=== PATIENT | male | born 1965 | race Caucasian/White ===

== ENCOUNTER 2019-03-03 06:20 | Day surgery (SDC) | payer MEDICARE ==
[2019-03-03] VITALS (8 sets, daily range): BP systolic 120–144; BP diastolic 69–84
[~2019-03-03] VITALS: Ht 172.7 cm; Wt 86.5 kg
[~2019-03-03 06:20] MED LIST: FOLI1TAB16 PO; FURO-150 PO; LACT10SO6 PO; MAGN400T39 PO; PANT-47 PO; THIA100T70 PO
[2019-03-03] MEDS ORDERED: albumin 25% 100mL bottle x 1 IV PRN (06:45)
[2019-03-03] MEDS ORDERED: normal saline 1000ml 1,000 ML IV PRN (06:45)
[2019-03-03 09:52] LABS: ALANINE AMINOTRANSFERASE 13 U/L (12-78); ALBUMIN 2.9 G/DL (3.4-5.0); ALBUMIN/GLOBULIN RATIO 0.7 (1.1-1.5); ALKALINE PHOSPHATASE 131 IU/L (46-116); ASPARTATE AMINO TRANSFERASE 24 U/L (10-37); BILIRUBIN,DIRECT 0.3 MG/DL (0-0.3); BILIRUBIN,TOTAL 0.6 MG/DL (0.1-1.0); TOTAL PROTEIN 7.1 G/DL (6.4-8.2)
== END 2019-03-03 10:00 | disposition home or self-care (01) ==
LOC: SSTAY O 06:20
PROVIDERS: ATTEND Radiology Diagnostic Radiology
DX: R18.8 Other ascites (principal); K74.60 Unspecified cirrhosis of liver; Z79.899 Other long term (current) drug therapy
CPT/HCPCS: 36415; 49083; 80076; C1729; J7030

== ENCOUNTER 2019-03-16 07:59 | Day surgery (SDC) | payer MEDICARE ==
[~2019-03-16] VITALS: Ht 172.7 cm; Wt 86.4 kg
[~2019-03-16 07:59] MED LIST changes: +LACT10SO57 PO; -LACT10SO6 PO
[2019-03-16] MEDS ORDERED: normal saline 1000ml 1,000 ML IV PRN (08:15)
[2019-03-16] MEDS ORDERED: albumin 25% 100mL bottle x 1 IV PRN (08:15)
[2019-03-16] MEDS ORDERED: PER5325T PO (08:27)
[2019-03-16] MEDS ORDERED: BACL20TA PO (08:27)
[2019-03-16 08:29] VITALS: BP 148/87
[2019-03-16 08:30] VITALS: BP_SYST 124; BP_SYST 131; BP_DIAS 84; BP_DIAS 85
[2019-03-16 08:40] VITALS: BP 129/83
[2019-03-16 08:55] VITALS: BP 132/88
[2019-03-16 09:15] VITALS: BP 130/87
[2019-03-16 09:30] VITALS: BP 125/86
== END 2019-03-16 09:50 | disposition home or self-care (01) ==
LOC: SSTAY O 07:59
PROVIDERS: ATTEND Radiology Vascular & Interventional Radiology
DX: R18.8 Other ascites (principal); K74.60 Unspecified cirrhosis of liver; Z79.899 Other long term (current) drug therapy
CPT/HCPCS: 49083; C1729; J7030

== ENCOUNTER 2019-03-30 07:43 | Day surgery (SDC) | payer MEDICARE ==
[2019-03-30] VITALS (10 sets, daily range): BP systolic 145–176; BP diastolic 80–99
[~2019-03-30] VITALS: Ht 172.7 cm; Wt 88.4 kg
[~2019-03-30 07:43] MED LIST changes: +BACL20TA PO; +PER5325T PO
[2019-03-30] MEDS ORDERED: albumin 25% 100mL bottle x 1 IV PRN (08:05)
[2019-03-30] MEDS ORDERED: normal saline 1000ml 1,000 ML IV PRN (08:05)
== END 2019-03-30 10:30 | disposition home or self-care (01) ==
LOC: SSTAY O 07:43
PROVIDERS: ATTEND Radiology Vascular & Interventional Radiology
DX: R18.8 Other ascites (principal); K74.60 Unspecified cirrhosis of liver; Z79.899 Other long term (current) drug therapy
CPT/HCPCS: 49083; C1729; J7030; P9047

== ENCOUNTER 2019-05-25 07:48 | Day surgery (SDC) | payer MEDICARE ==
[~2019-05-25] VITALS: Ht 172.7 cm; Wt 81.6 kg
[2019-05-25] MEDS ORDERED: normal saline 1000ml 1,000 ML IV PRN (08:05)
[2019-05-25] MEDS ORDERED: albumin 25% 100mL bottle x 1 IV PRN (08:05)
--- NOTE | 2019-05-25 09:00 | NUR ---
NATTY DYER, WENT IN TO SCAN PATIENT. PATIENT DID NOT HAVE ENOUGH FLUID IN THE BELLY TO DRAIN. PROCEDURE WAS CANCELLED. PICS ON ULTRASOUND SAVED. PATIENT LEFT IN STABLE CONDITION, WALKED OUT BY NURSING.
== END 2019-05-25 09:00 | disposition home or self-care (01) ==
LOC: SSTAY O 07:48
PROVIDERS: ATTEND Radiology Diagnostic Radiology
DX: K70.31 Alcoholic cirrhosis of liver with ascites (principal); I25.10 Atherosclerotic heart disease of native coronary artery without angina pectoris; I10 Essential (primary) hypertension; E78.5 Hyperlipidemia, unspecified; E11.9 Type 2 diabetes mellitus without complications; N40.0 Benign prostatic hyperplasia without lower urinary tract symptoms; F41.1 Generalized anxiety disorder; H54.8 Legal blindness, as defined in USA; Z85.048 Personal history of other malignant neoplasm of rectum, rectosigmoid junction, and anus; Z93.3 Colostomy status; Z88.8 Allergy status to other drugs, medicaments and biological substances; Z79.82 Long term (current) use of aspirin; Z79.899 Other long term (current) drug therapy; Z83.3 Family history of diabetes mellitus
CPT/HCPCS: 76705; J7030

== ENCOUNTER 2019-06-21 08:11 | Day surgery (SDC) | payer MEDICARE ==
[~2019-06-21] VITALS: Ht 172.7 cm; Wt 80.7 kg
[2019-06-21 08:00] VITALS: BP 125/95
[2019-06-21] MEDS ORDERED: CLINDAMYCIN/D5W 900mg/50ml 50 ML IV ONE (08:40)
[2019-06-21] MEDS ORDERED: normal saline 1000ml 1,000 ML IV PRN (08:40)
[2019-06-21] MEDS ORDERED: albumin 25% 100mL bottle x 1 IV PRN (08:40)
== END 2019-06-21 10:00 | disposition home or self-care (01) ==
LOC: SSTAY O 08:11
PROVIDERS: ATTEND Radiology Vascular & Interventional Radiology
DX: K70.31 Alcoholic cirrhosis of liver with ascites (principal); Z88.8 Allergy status to other drugs, medicaments and biological substances; Z79.899 Other long term (current) drug therapy; Z90.49 Acquired absence of other specified parts of digestive tract; Z80.3 Family history of malignant neoplasm of breast
CPT/HCPCS: 76705; J7030; J3490